=== PATIENT | male | born 1985 | race Caucasian/White ===

== ENCOUNTER 2020-06-04 20:14 | Inpatient (IN) ==
--- NOTE | 2020-06-04 20:48 | DR.EXTPAIN ---
HPI Time seen Time Seen by Provider: 06/04/20 20:43 PCP Primary Care Physician: CRAIG HPI Comment HPI Comment: 35 yo cm w/ no pmh presents with 2 day hx of scrotal pain/ swelling along with some dysuria. Denies any known trauma to area. No testicular pain. + subjective fever w/o chills. No n/v/d, other abd pain. No hematuria. No hx of DM. Complaint/Symptoms Chief Complaint:: PATIENT AMBULATORY INTO TRIAGE WITH C/O RIGHT GROIN PAIN; PATIENT STATES HE HAS A "ROCK HARD" AREA ON RIGHT GROIN "THE SIZE OF A SILVER DOLLAR". PATIENT STATES IT DEAN TO URINATE. Self Treatment fo Chief Complaint: NO [place] [employer]LECT[employer] COVID-19 Coronavirus risk:travel/contact w/high risk person: No Has patient experienced Coronavirus symptoms: No Source History Provided: Patient Mode of arrival Mode of Arrival: Ambulatory Timing Onset of Chief Complaint: 06/02/20 PMH PMH Past Medical History: Yes Past Medical History: Asthma, COPD and Hypertension Past Medical History Comment: HERNIA INJURY TO BACK FROM FALL CHRONIC BRONCHITIS - ALBUTEROL INHALER Past Surgical History: Yes Past Surgical History Comment: HERNIA SURGERY Family History History of Family Medical Conditions: No Social History Alcohol Use: None Do you use any recreational Drugs:: No Lives With: Family Lives Where: Home Travel Risk Coronavirus risk:travel/contact w/high risk person: No Has patient experienced Coronavirus symptoms: No Infectious screening Have you traveled outside the country in the last 6 months?: No Isolation: Standard ROS Review of Systems Constitutional: No Symptoms Reported Eyes: No Symptoms Reported ENTM: No Symptoms Reported Respiratoy: No Symptoms Reported Cardiovascular: No Symptoms Reported Gastrointestinal/Abdominal: No Symptoms Reported Genitourinary: Dysuria; negative Discharge, Frequency, Hematuria and Bleeding Neurological: No Symptoms Reported Musculoskeletal: No Symptoms Reported Integumentary: Wound Hematologic/Lymphatic: No Symptoms Reported Endocrine: No Symptoms Reported Psychiatric: No Symptoms Reported All Other Systems: Reviewed and Negative PE Vital Signs Vitals: Temperature 100.9 F Pulse Rate 85 Respiratory Rate 20 Blood Pressure 139/76 O2 Sat by Pulse Oximetry 96 General Limitations: No Limitations General Appearance: Alert and In No Apparent Distress Head Head Exam: Normal Inspection Eyes Eye exam: Normal Appearance ENT ENT Exam: Normal Exam Neck Neck Exam: Normal Inspection Chest Chest Inspection: Normal Inspection Respiratory Respiratory Exam: Normal Lung Sounds Bilat Cardiovascular Cardiovascular Exam: Regular Rate and Normal Rhythm Abdominal Exam Abdominal Exam: Normal Inspection, Normal Bowel Sounds and Soft Abdominal Tenderness: Other (5 x 5 x 5 cm area of induration/ fluctuance/ warmth right hemiscrotum, tender, no testicular tenderness. ) Extremities Extremities Exam: Normal Inspection Back Back Exam: Normal Inspection Neurological Neurological Exam: Alert, Oriented X3 and CN II-XII Intact Psychiatric Psychiatric Exam: Normal Affect and Normal Mood Skin Skin Exam: Warm, Dry, Intact and Normal Color MDM Differential Diagnosis Differential Diagnosis: Other (cellulitis, abscess, uti, epididimitis ) COURSE Treatment Treatment: 2105: Patient presents w/ scrotal abscess. Febrile on arrival. VSS. Will order labs, blood cx's x 2. Start on vanco. 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 Will order scrotal US to see extend of abscess and r/o underlying torsion/ epididymitis. US w/o evidence of torsion. Admit for iv abx and surgical eval in morning for I/d. Education/Counseling Education/Counseling: Patient Educated On: Treatment, Diagnosis, Prognosis and Needs for Follow Up ROR Labs Reviewed Result Diagrams: 06/04/20 22:30 06/04/20 21:32 Laboratory: WBC 24.1 X10^3/uL (3.6-10.0) H 06/04/20 22:30 RBC 4.51 X10^6/uL (4.7-6.0) L 06/04/20 22:30 Hgb 12.9 g/dL (13.5-18.0) L 06/04/20 22:30 Hct 39.3 % (42.0-54.0) L 06/04/20 22:30 MCV 87.1 fL (80.0-100.0) 06/04/20 22:30 MCH 28.7 pg (27.0-34.0) 06/04/20 22:30 MCHC 32.9 g/dL (33.0-35.0) L 06/04/20 22:30 RDW 16.3 % (11.6-16.5) 06/04/20 22:30 Plt Count 303 X10^3/uL (150.0-450.0) 06/04/20 22:30 Plt Count Comment Adequate (ADEQUATE) 06/04/20 22:30 MPV 7.7 fL (7.4-11.0) 06/04/20 22:30 Neut % (Auto) 69.8 % (42.0-75.0) 06/04/20 22:30 Lymph % (Auto) 19.2 % (21.0-51.0) L 06/04/20 22:30 Boyle % (Auto) 9.4 % (0.0-13.0) 06/04/20 22:30 Eos % (Auto) 1.2 % (0.9-2.9) 06/04/20 22:30 Baso % (Auto) 0.4 % (0.2-1.0) 06/04/20 22:30 Neut # (Auto) 16.8 x10^3/uL (2.2-4.8) H 06/04/20 22:30 Lymph # (Auto) 4.6 X10^3/uL (1.3-2.9) H 06/04/20 22:30 Boyle # (Auto) 2.3 x10^3/uL (0.3-0.8) H 06/04/20 22:30 Eos # (Auto) 0.3 x10^3/uL (0.0-0.2) H 06/04/20 22:30 Baso # (Auto) 0.1 X10^3/uL (0.0-0.1) 06/04/20 22:30 Absolute Nucleated RBC 0.1 /100WBC 06/04/20 22:30 Total Counted 100 06/04/20 22:30 Neutrophils % (Manual) 71 % (39-76) 06/04/20 22:30 Lymphocytes % (Manual) 18 % (13-43) 06/04/20 22:30 Monocytes % (Manual) 11 % (4-9) H 06/04/20 22:30 Plt Morphology Comment Normal (NORMAL) 06/04/20 22:30 RBC Morphology Normal (NORMAL) 06/04/20 22:30 Sodium 137 mmol/L (136-145) 06/04/20 21:32 Corrected Sodium TNP 06/04/20 21:32 Potassium 3.8 mmol/L (3.5-5.1) 06/04/20 21:32 Chloride 101 mmol/L (98-107) 06/04/20 21:32 Carbon Dioxide 25.1 mmol/L (21-32) 06/04/20 21:32 BUN 15 mg/dL (7-18) 06/04/20 21:32 Creatinine 0.86 mg/dL (0.70-1.30) 06/04/20 21:32 Est GFR (MDRD) Af Amer > 60 (>60) 06/04/20 21:32 Est GFR (MDRD) Non-Af > 60 (>60) 06/04/20 21:32 Glucose 101 mg/dL (65-99) H 06/04/20 21:32 Calcium 8.5 mg/dL (8.5-10.1) 06/04/20 21:32 Opioid Opioid Risk Tool Age (Javed box if 16-45): Yes History of Preadolescent Sexual Abuse: No Total: 1 Total Score Risk Category: Low Risk Copyright: [facility] predicting aberrant behaviors Diagnosis Discharge Problem: Abscess of scrotal wall Sepsis Qualifiers: Sepsis type: sepsis due to unspecified organism Sepsis acute organ dysfunction status: without acute organ dysfunction Qualified Code(s): A41.9 - Sepsis, unspe cified organism
[2020-06-04] MEDS ORDERED: VANCOMYCIN HCL IV ONE (20:57)
[2020-06-04] MEDS ORDERED: D5W IV ONE (20:57)
[2020-06-04] MEDS ORDERED: TYLENOL 500 MG TAB EXTRA STRENGTH PO ONE ×2 (20:58→21:26)
[2020-06-04] MEDS ORDERED: NS 1000 ML 1,000 ML IV ONE (20:58)
[2020-06-04] MEDS ORDERED: ZOFRAN INJ 4 MG VIAL IVP ONE (20:58)
[2020-06-04] MEDS ORDERED: NS 1000 ML 1,000 ML ONE (21:00)
[2020-06-04] MEDS ORDERED: DILAUDID INJ IVP ONE (21:16)
[2020-06-04] MEDS ORDERED: VANCOMYCIN HCL ONE (21:18)
[2020-06-04] MEDS ORDERED: NS 250 ML IV 250 ML IV ONE (21:18)
[2020-06-04] MEDS ORDERED: DILAUDID INJ ONE (21:26)
[2020-06-04] MEDS ORDERED: ZOFRAN INJ 4 MG VIAL ONE (21:26)
[2020-06-04 22:15] LABS: BLOOD UREA NITROGEN 15 mg/dL (7-18); CALCIUM 8.5 mg/dL (8.5-10.1); CARBON DIOXIDE 25.1 mmol/L (21-32); CHLORIDE 101 mmol/L (98-107); CREATININE 0.86 mg/dL (0.70-1.30); SODIUM 137 mmol/L (136-145); eGFR NON BLACK RACES > 60 (>60)
[2020-06-04 22:37] LABS: BASOPHILS # (AUTO) 0.1 X10^3/uL (0.0-0.1); BASOPHILS % (AUTO) 0.4 % (0.2-1.0); EOSINOPHILS # (AUTO) 0.3 x10^3/uL (0.0-0.2); EOSINOPHILS % (AUTO) 1.2 % (0.9-2.9); HEMATOCRIT 39.3 % (42.0-54.0); HEMOGLOBIN 12.9 g/dL (13.5-18.0); LYMPHOCYTES # (AUTO) 4.6 X10^3/uL (1.3-2.9); LYMPHOCYTES % (AUTO) 19.2 % (21.0-51.0); MEAN CORPUSCULAR HEMOGLOBIN 28.7 pg (27.0-34.0); MEAN CORPUSCULAR HGB CONC 32.9 g/dL (33.0-35.0); MEAN CORPUSCULAR VOLUME 87.1 fL (80.0-100.0); MEAN PLATELET VOLUME 7.7 fL (7.4-11.0); MONOCYTES # (AUTO) 2.3 x10^3/uL (0.3-0.8); MONOCYTES % (AUTO) 9.4 % (0.0-13.0); NEUTROPHILS # (AUTO) 16.8 x10^3/uL (2.2-4.8); NEUTROPHILS % (AUTO) 69.8 % (42.0-75.0); PLATELET COUNT 303 X10^3/uL (150.0-450.0); RED BLOOD COUNT 4.51 X10^6/uL (4.7-6.0); RED CELL DISTRIBUTION WIDTH 16.3 % (11.6-16.5); WHITE BLOOD COUNT 24.1 X10^3/uL (3.6-10.0)
[2020-06-04] MEDS ORDERED: DILAUDID INJ IVP PRN (22:37)
[2020-06-04] MEDS ORDERED: ZOFRAN INJ 4 MG VIAL IVP PRN (22:37)
--- NOTE | 2020-06-04 22:50 | US ---
HISTORYRT TESTICLE PAINSTUDYTESTICULARCOMPARISONNoneTECHNIQUESurvey ultrasound imaging of the scrotum was performed incl uding color and spectral Doppler evaluation with business office representative images obtained.FINDINGSStatements:No neRight testicle/epididymis: The testicle measures 3.5 x 4.4 x 2.4 cm. The testicular parenchyma is sonographically unremarkable. Blood flow is normal. The epididymis is not enlarged and demonstrates normal blood flow.Left testicle/epididymis: The testicle measures 3.1 x 2.7 x 2.5 cm. The testicular parenchyma is sonographically unremarkable. Blood flow is normal. The epididymis is not enlarged and demonstrates normal blood flow.Other: Thickened right scrotal wall with a mildly complex lobulated co llection measuring 3.7 x 1.8 x 2.5 cm with surrounding hyperemia. Multiple internal echogenic foci, p otentially represent air.. Small right hydrocele. No varicocele.IMPRESSIONFindings concerning for a r ight scrotal wall abscess containing air and surrounding hyperemia.Small right hydrocele.Electronical ly signed by: Gladys Condon (Jun 04, 2020 22:49:07)
[2020-06-04] MEDS ORDERED: NS 1000 ML 1,000 ML IV SCH (23:00)
[2020-06-04] MEDS ORDERED: PHARMACY CONSULT - VANCOMYCIN XX SCH (23:00)
[2020-06-04 23:32] LABS: PLATELET MORPHOLOGY COMMENT NORMAL (NORMAL)
[2020-06-04 23:42] VITALS: BMI 41.7
[2020-06-05 00:01] VITALS: BP 131/76
== END 2020-06-05 00:10 | disposition left against medical advice (07) | DRG 728 ==
LOC: ER 20:24 → MED/SURG 22:35
PROVIDERS: ADMIT Surgery; ATTEND Surgery
DX: N49.2 Inflammatory disorders of scrotum; Z53.29 Procedure and treatment not carried out because of patient's decision for other reasons; I10 Essential (primary) hypertension; J44.9 Chronic obstructive pulmonary disease, unspecified; N50.82 Scrotal pain